=== PATIENT | male | born 1990 | race American Indian/Alaskan Native ===

== ENCOUNTER 2016-06-21 10:51 | Emergency (ER) | payer OTHER ==
[~2016-06-21] VITALS: Ht 177.8 cm; Wt 89.8 kg
== END 2016-06-21 12:16 | disposition home or self-care (01) ==
LOC: ED 10:51
DX: M79.1 Myalgia (principal)
CPT/HCPCS: 87804; 99283

== ENCOUNTER 2021-11-24 10:07 | Emergency (ER) | payer OTHER ==
[~2021-11-24] VITALS: Ht 177.8 cm; Wt 108.9 kg
[2021-11-24 10:14] VITALS: BP 126/70; TEMP 98
[2021-11-24] MEDS ORDERED: AZIT250T3 PO (11:09)
== END 2021-11-24 11:16 | disposition home or self-care (01) ==
LOC: ED 10:07
DX: J31.2 Chronic pharyngitis (principal); R09.89 Other specified symptoms and signs involving the circulatory and respiratory systems; F17.210 Nicotine dependence, cigarettes, uncomplicated
CPT/HCPCS: 87651; 99282

== ENCOUNTER 2022-02-24 10:10 | Emergency (ER) | payer OTHER ==
[~2022-02-24 10:10] MED LIST: AZIT250T3 PO
[2022-02-24 17:20] LABS: POTASSIUM 3.9 mmol/L (3.6-5.2)
[2022-02-24 18:13] LABS: PLATELET COUNT 257 K/uL (142-355)
== END 2022-02-24 11:35 | disposition home or self-care (01) ==
LOC: ED 10:10
PROVIDERS: Family Medicine
DX: K52.89 Other specified noninfective gastroenteritis and colitis (principal); R19.7 Diarrhea, unspecified; E86.0 Dehydration; R10.84 Generalized abdominal pain; R11.2 Nausea with vomiting, unspecified
CPT/HCPCS: 80053; 81002; 85027; 99283